=== PATIENT | female | born 1965 | race Caucasian/White ===

== ENCOUNTER 2016-03-13 11:43 | Emergency (ER) | payer OTHER ==
[~2016-03-13] VITALS: Ht 162.6 cm; Wt 111.0 kg
[~2016-03-13 11:43] MED LIST: COZA50TA PO; GABA400C5 PO; GLIP10TA6 PO; GLUC1000 PO; HYDR-3535 PO; ZOFR8TAB PO
[2016-03-13 11:45] VITALS: BP 166/77; PULSE 80; RESP 12; TEMP 97.6; O2SAT 98
[2016-03-13] MEDS ORDERED: [UNRECOGNIZED DRUG - OTHER] (12:38)
[2016-03-13] MEDS ORDERED: MOBI15TA PO (12:38)
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
[2016-03-13] MEDS ORDERED: SODIUM CHLOR 0.9% 1000 ML INJ 1,000 ML IV ONE (13:08)
[2016-03-13] MEDS ORDERED: KETOROLAC TROMETHAMINE 30 MG/ML (IVP) VIAL IVP ONE (13:15)
[2016-03-13] MEDS ORDERED: diphenhydrAMINE HCL 50 MG/ML VIAL IVP ONE (13:15)
[2016-03-13] MEDS ORDERED: PROCHLORPERAZINE INJ 10 MG/2 ML VIAL IVP ONE (13:15)
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
[2016-03-13] MEDS ORDERED: CYCL1TAB29 PO (14:43)
[2016-03-13] MEDS ORDERED: IBUP-232 PO (14:43)
== END 2016-03-13 15:28 | disposition home or self-care (01) ==
LOC: NETRI 11:43
DX: G44.309 Post-traumatic headache, unspecified, not intractable (principal); M54.5 Low back pain; G89.29 Other chronic pain; E78.00 Pure hypercholesterolemia, unspecified; E11.9 Type 2 diabetes mellitus without complications; I10 Essential (primary) hypertension; V53.6XXA Passenger in pick-up truck or van injured in collision with car, pick-up truck or van in traffic accident, initial encounter; Y93.89 Activity, other specified; Y92.410 Unspecified street and highway as the place of occurrence of the external cause
CPT/HCPCS: 70450; 72125; 72131; 73521; 96361; 96374; 96375; 99284; J0780; J1200; J1885; J7030

== ENCOUNTER 2017-09-17 19:23 | Observation (INO) ==
[2017-09-17] MEDS ORDERED: Aspirin 325 MG Tablet PO ONE (19:47)
--- NOTE | 2017-09-17 19:50 | ED ---
HPI General Chief Complaint: Chest Pain Stated Complaint: high blood sugar [id number] Time Seen by Provider: 09/17/17 19:47 Source: patient Mode of arrival: ambulatory Limitations: no limitations History of Present Illness HPI narrative: 51-year-old female patient with history of hypertension, diabetes , has recently been having qgm-jn-epxeegu blood sugars for the last 3 weeks, had her sugar medications readjusted a week ago by her primary care physician, but states it is not getting better, states that she is having frequent urination, not feeling well, having 2 weeks of substernal chest discomfort, shortness of breath and dyspnea on exertion. She has been nauseous. She denies any fevers, vomiting, abdominal pain, or other symptoms. She states that her blood pressure has been out of control as well. She talked to her primary care doctor and was told to come to the ER for evaluation of her blood sugars. Complete Quality Measures for STEMI Alert Patients Related Data Allergies Allergy/AdvReac Type Severity Reaction Status Date / Time codeine AdvReac Intermediate VOMITING Verified 09/17/17 20:01 Review of Systems Except as stated in HPI: all other systems reviewed are negative PMFSH History History Provided By: Patient Medical History Medical History Arthritis pain of hip (Acute) Diabetes (Acute) HTN (hypertension) (Acute) Hip pain (Acute) Hip pain, bilateral (Acute) Peripheral neuropathy (Acute) Restless leg syndrome (Acute) Surgical History Surgical History H/O tubal ligation (Acute) Social History Social History Recent Travel in [facility] within the Last 8 Weeks: No Recent Out of Country Travel within the Last 8 Weeks: No Exam Narrative Exam Narrative: GENERAL: Well-developed middle-age female patient currently and mild distress. Awake and oriented 3. SKIN: Focused skin assessment warm/dry. HEAD: Atraumatic. Normocephalic. EYES: Pupils equal and round. No scleral icterus. No injection or drainage. ENT: No nasal bleeding or discharge. Mucous membranes pink and moist. NECK: Trachea midline. No JVD. CARDIOVASCULAR: Regular rate and rhythm. No murmur appreciated. RESPIRATORY: No accessory muscle use. Clear to auscultation. Breath sounds equal bilaterally. GASTROINTESTINAL: Abdomen soft, non-tender, nondistended. Hepatic and splenic margins not palpable. MUSCULOSKELETAL: No obvious deformities. No clubbing. No cyanosis. No edema. NEUROLOGICAL: Awake and alert. No obvious cranial nerve deficits. Motor grossly within normal limits. Normal speech. PSYCHIATRIC: Appropriate mood and affect; insight and judgment normal. Course Hospital Course: Considering her chest pain, she was given aspirin, nitroglycerin, metoprolol in the ER as well as morphine and had good blood pressure response. Her chest pains went down to a 6 out of 10 after medications were given. And at this point, considering her multiple issues, plan would be to admit her for further treatment. Case is discussed with Dr. Correa for admission. Initial Documented Vital Signs Temperature 98.7 F 09/17/17 19:29 Pulse Rate 83 09/17/17 19:29 Respiratory Rate 16 09/17/17 19:29 Blood Pressure 186/94 H 09/17/17 19:29 Pulse Oximetry 98 09/17/17 19:29 Last Documented Vital Signs Temperature 98.7 F 09/17/17 19:29 Pulse Rate 73 09/17/17 21:21 Respiratory Rate 16 09/17/17 19:29 Blood Pressure 128/69 09/17/17 21:21 Pulse Oximetry 100 09/17/17 21:21 Medical Decision Making Differential Diagnosis Differential Diagnosis: Hypertensive urgency versus electrolyte abnormalities versus UTI versus sepsis Lab Data Result diagrams: 09/17/17 20:20 09/17/17 20:20 Lab Results 09/17/17 09/17/17 09/17/17 Range/Units 20:05 20:20 20:20 CBC w Diff Auto diff final WBC 8.3 (4.0-11.0) th/mm3 RBC 4.74 (4.00-5.30) mil/mm3 Hgb 13.5 (11.6-15.3) gm/dL Hct 39.9 (35.0-46.0) % MCV 84.0 (80.0-100.0) fL MCH 28.4 (27.0-34.0) pg MCHC 33.8 (32.0-36.0) % RDW 12.6 (11.6-17.2) % Plt Count 197 (150-450) th/mm3 MPV 9.3 (7.0-11.0) fL Neut % (Auto) 68.9 (16.0-70.0) % Lymph % (Auto) 27.0 (9.0-44.0) % Foard % (Auto) 2.5 (0.0-8.0) % Eos % (Auto) 1.0 (0.0-4.0) % Baso % (Auto) 0.6 (0.0-2.0) % Neut # (Auto) 5.8 (1.8-7.7) th/mm3 Lymph # (Auto) 2.2 (1.0-4.8) th/mm3 Foard # (Auto) 0.2 (0.0-0.9) th/mm3 Eos # (Auto) 0.1 (0.0-0.4) th/mm3 Baso # (Auto) 0.0 (0.0-0.2) th/mm3 WBC Differential . Differential Comment . PT 10.6 (9.8-11.6) sec INR 1.0 Ratio APTT 22.5 L (24.3-30.1) sec Sodium (136-145) meq/L Potassium (3.5-5.1) meq/L Chloride (98-107) meq/L Carbon Dioxide (21.0-32.0) meq/L Anion Gap (5-15) meq/L BUN (7-18) mg/dL Creatinine (0.50-1.00) mg/dL Estimated GFR (>89) mL/min POC Glucose (68-110) mg/dl Random Glucose (74-106) mg/dL Calcium (8.5-10.1) mg/dL Total Bilirubin (0.2-1.0) mg/dL AST (15-37) U/L ALT (10-53) U/L Alkaline Phosphatase (45-117) U/L Troponin I (0.02-0.05) ng/mL Total Protein (6.4-8.2) g/dL Albumin (3.4-5.0) g/dL Lipase (73-393) U/L Urine Color Yellow (Yellw/Straw) Urine Clarity Clear (Clear) Urine pH 5.5 (5.0-8.5) Ur Specific [place] Less/equal 1.005 (1.002-1.035) Urine Protein Negative (Neg-Trace) mg/dL Urine Glucose (UA) 1000 or greater H (Negative) mg/dL Urine Ketones Negative (Negative) mg/dL Urine Occult Blood Negative (Negative) Urine Nitrate Negative (Negative) Urine Bilirubin Negative (Negative) Urine Urobilinogen 0.2 (Less than 2) mg/dL Ur Leukocyte Esterase Negative (Negative) Urine RBC 0-3 (0-3) /hpf Urine WBC 6-8 H (0-5) /hpf Urine WBC Clumps Few H (None) Ur Squamous Epith Cells 0-5 (0-5) /hpf Micro UA Comment Culture indicated Urine Culture Comments Culture indicated 09/17/17 09/17/17 Range/Units 20:20 21:56 CBC w Diff WBC (4.0-11.0) th/mm3 RBC (4.00-5.30) mil/mm3 Hgb (11.6-15.3) gm/dL Hct (35.0-46.0) % MCV (80.0-100.0) fL MCH (27.0-34.0) pg MCHC (32.0-36.0) % RDW (11.6-17.2) % Plt Count (150-450) th/mm3 MPV (7.0-11.0) fL Neut % (Auto) (16.0-70.0) % Lymph % (Auto) (9.0-44.0) % Foard % (Auto) (0.0-8.0) % Eos % (Auto) (0.0-4.0) % Baso % (Auto) (0.0-2.0) % Neut # (Auto) (1.8-7.7) th/mm3 Lymph # (Auto) (1.0-4.8) th/mm3 Foard # (Auto) (0.0-0.9) th/mm3 Eos # (Auto) (0.0-0.4) th/mm3 Baso # (Auto) (0.0-0.2) th/mm3 WBC Differential Differential Comment PT (9.8-11.6) sec INR Ratio APTT (24.3-30.1) sec Sodium 132 L (136-145) meq/L Potassium 4.3 (3.5-5.1) meq/L Chloride 98 (98-107) meq/L Carbon Dioxide 25.6 (21.0-32.0) meq/L Anion Gap 8 (5-15) meq/L BUN 16 (7-18) mg/dL Creatinine 0.88 (0.50-1.00) mg/dL Estimated GFR 67 L (>89) mL/min POC Glucose 307 H (68-110) mg/dl Random Glucose 397 H (74-106) mg/dL Calcium 9.2 (8.5-10.1) mg/dL Total Bilirubin 0.3 (0.2-1.0) mg/dL AST 30 (15-37) U/L ALT 33 (10-53) U/L Alkaline Phosphatase 91 (45-117) U/L Troponin I Less than 0.02 L (0.02-0.05) ng/mL Total Protein 8.4 H (6.4-8.2) g/dL Albumin 3.3 L (3.4-5.0) g/dL Lipase 387 (73-393) U/L Urine Color (Yellw/Straw) Urine Clarity (Clear) Urine pH (5.0-8.5) Ur Specific [place] (1.002-1.035) Urine Protein (Neg-Trace) mg/dL Urine Glucose (UA) (Negative) mg/dL Urine Ketones (Negative) mg/dL Urine Occult Blood (Negative) Urine Nitrate (Negative) Urine Bilirubin (Negative) Urine Urobilinogen (Less than 2) mg/dL Ur Leukocyte Esterase (Negative) Urine RBC (0-3) /hpf Urine WBC (0-5) /hpf Urine WBC Clumps (None) Ur Squamous Epith Cells (0-5) /hpf Micro UA Comment Urine Culture Comments Imaging Data Radiologist's impression: Chest X-Ray 09/17/17 19:48 CONCLUSION: No active disease. Discharge Plan Discharge Details Anticipated Discharge Date: 09/17/17 Physicians Team ED Provider: Jody Shannon Primary Care Provider: Shruthi Isabel Discharge Interventions Interventions: Vital Signs Last Done: 09/17/17 21:21 Status ED Status: With Doctor
[2017-09-17 20:10] LABS: Bilirubin,Urine Negative (Negative); Clarity,Urine Clear (Clear); Color,Urine Yellow (Yellw/Straw); Leukocyte Esterase,Urine Negative (Negative); Nitrite,Urine Negative (Negative); PH,Urine 5.5 (5.0-8.5); Specific Gravity,Urine Less/Equal 1.005 (1.002-1.035); Urobilinogen,Urine 0.2 mg/dL (Less than 2)
[2017-09-17 20:16] LABS: RBC,Urine 0-3 /hpf (0-3); Squamous Epithelial Cell,Urine 0-5 /hpf (0-5)
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
[2017-09-17] MEDS: Metoprolol Inj 5 MG/5 ML Vial IV.PUSH SCH ×3 (20:25→22:15)
[2017-09-17 20:29] LABS: Baso % (Auto) 0.6 % (0.0-2.0); Eos # (Auto) 0.1 th/mm3 (0.0-0.4); Hematocrit 39.9 % (35.0-46.0); Hemoglobin 13.5 gm/dL (11.6-15.3); Lymph # (Auto) 2.2 th/mm3 (1.0-4.8); Mean Corpuscular HGB Conc 33.8 % (32.0-36.0); Mean Corpuscular Hemoglobin 28.4 pg (27.0-34.0); Mean Platelet Volume 9.3 fL (7.0-11.0); Mono # (Auto) 0.2 th/mm3 (0.0-0.9); Mono % (Auto) 2.5 % (0.0-8.0); Neut # (Auto) 5.8 th/mm3 (1.8-7.7); Neut % (Auto) 68.9 % (16.0-70.0); Platelet Count 197 th/mm3 (150-450); Red Blood Count 4.74 mil/mm3 (4.00-5.30); Red Cell Distribution Width 12.6 % (11.6-17.2); White Blood Count 8.3 th/mm3 (4.0-11.0)
[2017-09-17 20:37] LABS: Chloride 98 meq/L (98-107); Potassium 4.3 meq/L (3.5-5.1); Sodium 132 meq/L (136-145)
[2017-09-17 20:40] LABS: Calcium 9.2 mg/dL (8.5-10.1)
[2017-09-17 20:41] LABS: Albumin 3.3 g/dL (3.4-5.0); Anion Gap 8 meq/L (5-15); Blood Urea Nitrogen 16 mg/dL (7-18); Carbon Dioxide 25.6 meq/L (21.0-32.0); Glucose,Random 397 mg/dL (74-106); Lipase 387 U/L (73-393)
[2017-09-17 20:42] LABS: Activated Partial Thrombo Time 22.5 sec (24.3-30.1); Prothrombin Time 10.6 sec (9.8-11.6)
[2017-09-17 20:43] LABS: Alanine Aminotransferase 33 U/L (10-53)
[2017-09-17 20:44] LABS: Aspartate Aminotransferase 30 U/L (15-37); Glomerular Filtration Rate 67 mL/min (>89)
[2017-09-17 20:45] LABS: Total Protein 8.4 g/dL (6.4-8.2)
[2017-09-17 20:46] LABS: Alkaline Phosphatase 91 U/L (45-117)
[2017-09-17] MEDS ORDERED: Morphine Inj 4 MG/ML Vial IV.PUSH ONE (21:04)
[2017-09-17] MEDS ORDERED: Temazepam 15 MG Capsule PO PRN (22:26)
[2017-09-17] MEDS ORDERED: Bisacodyl 10 MG Supp RECTAL PRN (22:26)
[2017-09-17] MEDS ORDERED: Dextrose 50% in Water 50 ML Vial IV.PUSH PRN (22:29)
[2017-09-17] MEDS: Insulin Detemir Inj 1,000 UNIT/10 ML Vial SQ SCH (23:22)
[2017-09-17] MEDS: Sod Chloride 0.9% Inj 1,000 ML IV.CONT SCH (23:23)
[2017-09-18 00:32] LABS: Creatine Kinase 46 U/L (26-192)
[2017-09-18 03:49] VITALS: O2SAT 95
[2017-09-18] MEDS: oxyCODONE/Acetaminophen 10/325 Tablet PO PRN ×3 (03:53→15:36)
[2017-09-18 05:58] LABS: Baso # (Auto) 0.1 th/mm3 (0.0-0.2); Baso % (Auto) 0.8 % (0.0-2.0); Eos # (Auto) 0.1 th/mm3 (0.0-0.4); Eos % (Auto) 1.6 % (0.0-4.0); Hematocrit 34.7 % (35.0-46.0); Hemoglobin 11.5 gm/dL (11.6-15.3); Lymph # (Auto) 2.9 th/mm3 (1.0-4.8); Lymph % (Auto) 35.6 % (9.0-44.0); Mean Corpuscular HGB Conc 33.2 % (32.0-36.0); Mean Corpuscular Volume 84.4 fL (80.0-100.0); Mean Platelet Volume 9.4 fL (7.0-11.0); Mono # (Auto) 0.4 th/mm3 (0.0-0.9); Mono % (Auto) 5.4 % (0.0-8.0); Neut # (Auto) 4.7 th/mm3 (1.8-7.7); Neut % (Auto) 56.6 % (16.0-70.0); Platelet Count 183 th/mm3 (150-450); Red Blood Count 4.11 mil/mm3 (4.00-5.30); Red Cell Distribution Width 12.7 % (11.6-17.2); White Blood Count 8.2 th/mm3 (4.0-11.0)
[2017-09-18 06:20] LABS: Creatine Kinase 37 U/L (26-192)
[2017-09-18 08:12] LABS: Chloride 103 meq/L (98-107); Potassium 3.8 meq/L (3.5-5.1); Sodium 138 meq/L (136-145)
[2017-09-18 08:17] LABS: Anion Gap 9 meq/L (5-15); Calcium 8.5 mg/dL (8.5-10.1); Carbon Dioxide 26.2 meq/L (21.0-32.0)
--- NOTE | 2017-09-18 08:19 | P.HP ---
History of Present Illness Primary Care Physician: Shruthi Isabel DO Chief Complaint: Uncontrolled diabetes, chest pain, uncontrolled hypertension History of Present Illness: 51-year-old female with known history of diabetes, hypertension, chronic pain, peripheral neuropathy who presented to the hospital because of uncontrolled diabetes. Patient indicates that she was in her normal state of health at home being managed by her primary medical doctor for hypertension, diabetes. When she checked her blood sugar was over 500. She gave herself extra insulin and she did not feel very well so she was brought to the hospital by one of her friends. On presentation patient had a 397 blood glucose level. Patient was given insulin 5 units IV with improvement of her glucose. Patient indicates that her prior medical doctor has been trying to manage her hypertension and diabetes, however she does not feel as if her conditions are in control. Her blood pressure on presentation is 186/94. She states that that is very high for her. The emergency department did administer her Lopressor 5 mg IV 1 with significant improvement in her blood pressure actually dropped down to 103/59. Patient has not required any other as needed blood pressure medication since then. Patient also mentioned to the ER physician that she has been having chest pain. She indicates that her chest pain has been going on for over 2 weeks. She states that it is a constant discomfort in the middle part of her chest. States that it feels like somebody is sitting on her chest. She rates it 8/10 on a pain scale. It is worse whenever she takes a deep breath. She denies any lightheadedness, dizziness, diaphoresis, nausea, vomiting associated with the discomfort. Patient does have significant risk factors for underlying coronary disease. She states that she has had cardiac workup many years ago, does not know exactly what testing was done. Is recommended by the ER physician the patient be observed in the hospital for further evaluation and management. - Diagnosis (1) Hypertension, uncontrolled (2) Uncontrolled diabetes mellitus (3) Chest pain Review of Systems All other systems reviewed negative except as stated in HPI Constitutional: Reports fatigue Cardiovascular: Reports chest pain, Reports lightheadedness, Reports shortness of breath Musculoskeletal: Reports body aches PMFSH - History History Provided By: Patient - Medical History Medical History: Medical History (Last Reviewed 09/18/17 @ 08:00 by DIANA Russell) Arthritis pain of hip Diabetes HTN (hypertension) Hip pain Hip pain, bilateral Peripheral neuropathy Restless leg syndrome - Surgical History Surgical History: Surgical History (Last Updated 09/18/17 @ 08:00 by DIANA Russell) H/O tubal ligation History of hip surgery - Family History Family History: Family History (Last Updated 09/18/17 @ 08:00 by DIANA Russell) Father History of diabetes mellitus - Tobacco History Second Hand Smoke Exposure: No Tobacco Use In Past 30 Days: No Smoking Status: Never smoker Tobacco Type: Cigarettes Number of Pack Years (if former smoker): 5 - Alcohol History How Often Do You Have a Drink Containing Alcohol: Never - Substance Use History Substance History: No History of Abuse - Travel History Recent Travel in the [place] Within the Last 8 Weeks: No Recent Travel Out of the Country Within the Last 8 Weeks: No - Immunization History Tetanus Immunization: Unable to Assess Hx Influenza Vaccine This Season: No Medications and Allergies Active Medications: Active Medications Al Hydroxide/Mg Hydroxide (Milk Of Magnesia Liq) 30 ml PO Q12H PRN PRN Reason: Mild Constipation Bisacodyl (Dulcolax Supp) 10 mg RECTAL DAILY PRN PRN Reason: SEVERE CONSITIPATION Dextrose (D50w Vial) 50 ml IV.PUSH UNSCH PRN PRN Reason: PER HYPOGLYCEMIA PROTOCOL Glucagon (Glucagon Inj) 1 mg OTHER PRN PRN PRN Reason: for Hypoglycemia Protocol Sodium Chloride (Ns Inj) 1,000 mls @ 100 mls/hr IV.CONT .Q10H [facility] Last Admin: 09/17/17 23:23 Dose: 100 mls/hr Insulin Aspart (Novolog Insulin Correctional Sugar Inj) 0 unit SQ ACHS BRENDA; Protocol Insulin Detemir (Levemir Inj) 5 unit SQ BID BRENDA Last Admin: 09/17/17 23:22 Dose: 5 unit Lactulose (Lactulose Liq) 30 ml PO DAILY PRN PRN Reason: SEVERE CONSITIPATION Losartan Potassium (Cozaar) 100 mg PO DAILY [facility] Oxycodone/Acetaminophen (Percocet 10/325 Mg) 1 tab PO Q6H PRN PRN Reason: Acute Pain Last Admin: 09/18/17 03:53 Dose: 1 tab Ropinirole HCl (Requip) 0.5 mg PO HS [facility] Sennosides (Senokot) 17.2 mg PO Q12H PRN PRN Reason: Moderate Constipation Sodium Chloride (Ns Flush) 2 ml IV.FLUSH UNSCH PRN PRN Reason: FLUSH AFTER USING IV ACCESS Temazepam (Restoril) 15 mg PO HS PRN PRN Reason: INSOMNIA Last Admin: 09/17/17 23:14 Dose: 15 mg Allergies Allergy/AdvReac Type Severity Reaction Status Date / Time codeine AdvReac Intermediate VOMITING Verified 09/17/17 20:01 Home Medications Medication Instructions Recorded Confirmed Type gabapentin 600 mg PO TID PRN 09/17/17 09/17/17 History glimepiride 8 mg PO QAM 09/17/17 09/17/17 History losartan 100 mg PO DAILY 09/17/17 09/17/17 History meloxicam 15 mg PO DAILY 09/17/17 09/17/17 History metformin 1,000 mg PO TID 09/17/17 09/17/17 History oxycodone-acetaminophen 1 tab PO Q6H PRN MDD 30 mg 09/17/17 09/17/17 History ropinirole 0.5 mg PO HS 09/17/17 09/17/17 History Exam Vital signs: Vital Signs 09/17/17 19:29 09/17/17 19:48 09/17/17 20:00 Temperature 98.7 F Pulse Rate 83 78 98 H Respiratory Rate 16 Blood Pressure 186/94 H 185/102 H Pulse Oximetry 98 98 99 09/17/17 20:30 09/17/17 21:00 09/17/17 21:21 Temperature Pulse Rate 74 86 73 Respiratory Rate 20 Blood Pressure 122/79 119/60 128/69 Pulse Oximetry 100 09/17/17 22:40 09/18/17 00:00 09/18/17 00:12 Temperature 98 F Pulse Rate 70 54 L 73 Respiratory Rate 18 16 20 Blood Pressure 117/69 103/59 L 117/68 Pulse Oximetry 99 09/18/17 00:22 09/18/17 00:44 09/18/17 03:47 Temperature 98 F 97.3 F L Pulse Rate 54 L 54 L 85 Respiratory Rate 18 16 Blood Pressure 103/59 L 141/78 H Pulse Oximetry 99 95 Intake & Output 09/17/17 09/18/17 09/18/17 18:59 06:59 18:59 Intake Total 120 / 120 Output Total 200 / 200 Balance -80 / -80 Weight 112 kg Intake: Oral 120 / 120 Output: Urine 200 / 200 Other: Weight On Admission 111.2 kg Narrative: GENERAL: Well-developed, well-nourished, in no acute distress. alert and orientated HEENT: Head is normocephalic without any lesions or masses noted. Facial features are symmetric. Eyes: Pupils equal round reactive to light. Extraocular muscles are intact. Conjunctivae were clear. Oropharyngeal: Pharynx without any erythema edema. Tongue is midline without deviation. Buccal mucosa is moist without any masses or lesions NECK: Supple without any masses. Trachea midline no deviation. No JVD, no bruits are appreciated CARDIAC: Regular rhythm, regular rate. S1/S2 are heard. No murmurs gallops or rubs. Reproducible chest wall tenderness noted in the mid sternum LUNGS: Clear to auscultation bilaterally. No wheeze, rhonchi or rales. No use of accessory muscles on inspiration or expiration. ABDOMEN: Soft, nontender. Nondistended. Bowel sounds heard in all 4 quadrants. No organomegaly or masses. Negative rebound, negative guarding EXTREMITIES: No edema, pulses are equal bilaterally. No cyanosis or clubbing NEUROLOGY: Mood and affect appear appropriate. Cranial nerves II through XII grossly intact. Muscle strength 5/5 in upper and lower extremities bilaterally. Deep tendon reflexes are 2+ in upper and lower extremities bilaterally. Results - Labs CBC & Chem 7: 09/18/17 05:00 09/18/17 05:00 Labs: Laboratory Results - last 24 hr 09/17/17 09/17/17 09/17/17 20:05 20:20 20:20 CBC w Diff Auto diff final WBC 8.3 RBC 4.74 Hgb 13.5 Hct 39.9 MCV 84.0 MCH 28.4 MCHC 33.8 RDW 12.6 Plt Count 197 MPV 9.3 Neut % (Auto) 68.9 Lymph % (Auto) 27.0 Larue % (Auto) 2.5 Eos % (Auto) 1.0 Baso % (Auto) 0.6 Neut # (Auto) 5.8 Lymph # (Auto) 2.2 Larue # (Auto) 0.2 Eos # (Auto) 0.1 Baso # (Auto) 0.0 WBC Differential . Differential Comment . PT 10.6 INR 1.0 APTT 22.5 L Sodium Potassium Chloride Carbon Dioxide Anion Gap BUN Creatinine Estimated GFR POC Glucose Random Glucose Calcium Total Bilirubin AST ALT Alkaline Phosphatase Total Creatine Kinase Troponin I Total Protein Albumin Lipase Urine Color Yellow Urine Clarity Clear Urine pH 5.5 Ur Specific Odum Less/equal 1.005 Urine Protein Negative Urine Glucose (UA) 1000 or greater H Urine Ketones Negative Urine Occult Blood Negative Urine Nitrate Negative Urine Bilirubin Negative Urine Urobilinogen 0.2 Ur Leukocyte Esterase Negative Urine RBC 0-3 Urine WBC 6-8 H Urine WBC Clumps Few H Ur Squamous Epith Cells 0-5 Micro UA Comment Culture indicated Urine Culture Comments Culture indicated 09/17/17 09/17/17 09/17/17 20:20 21:56 22:40 CBC w Diff WBC RBC Hgb Hct MCV MCH MCHC RDW Plt Count MPV Neut % (Auto) Lymph % (Auto) Larue % (Auto) Eos % (Auto) Baso % (Auto) Neut # (Auto) Lymph # (Auto) Larue # (Auto) Eos # (Auto) Baso # (Auto) WBC Differential Differential Comment PT INR APTT Sodium 132 L Potassium 4.3 Chloride 98 Carbon Dioxide 25.6 Anion Gap 8 BUN 16 Creatinine 0.88 Estimated GFR 67 L POC Glucose 307 H Random Glucose 397 H Calcium 9.2 Total Bilirubin 0.3 AST 30 ALT 33 Alkaline Phosphatase 91 Total Creatine Kinase 46 Troponin I Less than 0.02 L Less than 0.02 L Total Protein 8.4 H Albumin 3.3 L Lipase 387 Urine Color Urine Clarity Urine pH Ur Specific Odum Urine Protein Urine Glucose (UA) Urine Ketones Urine Occult Blood Urine Nitrate Urine Bilirubin Urine Urobilinogen Ur Leukocyte Esterase Urine RBC Urine WBC Urine WBC Clumps Ur Squamous Epith Cells Micro UA Comment Urine Culture Comments 09/18/17 09/18/17 09/18/17 05:00 05:00 07:57 CBC w Diff Auto diff final WBC 8.2 RBC 4.11 Hgb 11.5 L D Hct 34.7 L MCV 84.4 MCH 28.0 MCHC 33.2 RDW 12.7 Plt Count 183 MPV 9.4 Neut % (Auto) 56.6 Lymph % (Auto) 35.6 Larue % (Auto) 5.4 Eos % (Auto) 1.6 Baso % (Auto) 0.8 Neut # (Auto) 4.7 Lymph # (Auto) 2.9 Larue # (Auto) 0.4 Eos # (Auto) 0.1 Baso # (Auto) 0.1 WBC Differential . Differential Comment . PT INR APTT Sodium Potassium Chloride Carbon Dioxide Anion Gap BUN Creatinine Estimated GFR POC Glucose 288 H Random Glucose Calcium Total Bilirubin AST ALT Alkaline Phosphatase Total Creatine Kinase 37 Troponin I Less than 0.02 L Total Protein Albumin Lipase Urine Color Urine Clarity Urine pH Ur Specific Odum Urine Protein Urine Glucose (UA) Urine Ketones Urine Occult Blood Urine Nitrate Urine Bilirubin Urine Urobilinogen Ur Leukocyte Esterase Urine RBC Urine WBC Urine WBC Clumps Ur Squamous Epith Cells Micro UA Comment Urine Culture Comments - Imaging Impressions Chest X-Ray 09/17/17 19:48 CONCLUSION: No active disease. Caprini VTE Risk Assessment Caprini VTE Risk Assessment: No/Low Risk (score <= 1) Caprini Risk Assessment Model: Point Value = 1 Point Value = 2 Point Value = 3 Point Value = 5 Age 41-60 Minor surgery BMI > 25 kg/m2 Swollen legs Varicose veins or History of unexplained or recurrent spontaneous Oral contraceptives or hormone replacement Sepsis (< 1 month) Serious lung disease, including pneumonia (< 1 month) Abnormal pulmonary function Acute myocardial infarction Congestive heart failure (< 1 month) History of inflammatory bowel disease Medical patient at bed rest Age 61-74 Arthroscopic surgery Major open surgery (> 45 min) Laparoscopic surgery (> 45 min) Malignancy Confined to bed (> 72 hours) Immobilizing plaster cast Central venous access Age >= 75 History of VTE Family history of VTE Factor V Leiden Prothrombin [id number] Lupus anticoagulant Anticardiolipin antibodies Elevated serum homocysteine Heparin-induced thrombocytopenia Other congenital or acquired thrombophilia Stroke (< 1 month) Elective arthroplasty Hip, pelvis, or leg fracture Acute spinal cord injury (< 1 month) Prophylaxis Regimen: Total Risk Factor Score Risk Level Prophylaxis Regimen 0-1 Low Early ambulation 2 Moderate Order ONE of the following: *Sequential Compression Device (SCD) *Heparin 5000 units SQ BID 3-4 Higher Order ONE of the following medications: *Heparin 5000 units SQ TID *Enoxaparin/Lovenox 40 mg SQ daily (WT < 150 kg, CrCl > 30 mL/min) *Enoxaparin/Lovenox 30 mg SQ daily (WT < 150 kg, CrCl > 10-29 mL/min) *Enoxaparin/Lovenox 30 mg SQ BID (WT < 150 kg, CrCl > 30 mL/min) AND/OR *Sequential Compression Device (SCD) 5 or more Highest Order ONE of the following medications: *Heparin 5000 units SQ TID (Preferred with Epidurals) *Enoxaparin/Lovenox 40 mg SQ daily (WT < 150 kg, CrCl > 30 mL/min) *Enoxaparin/Lovenox 30 mg SQ daily (WT < 150 kg, CrCl > 10-29 mL/min) *Enoxaparin/Lovenox 30 mg SQ BID (WT < 150 kg, CrCl > 30 mL/min) AND *Sequential Compression Device (SCD) Assessment and Plan - Assessment (1) Hypertension, uncontrolled Code(s): I10 - Essential (primary) hypertension Status: Acute (2) Uncontrolled diabetes mellitus Code(s): E11.65 - Type 2 diabetes mellitus with hyperglycemia Status: Acute (3) Chest pain Code(s): R07.9 - Chest pain, unspecified Status: Acute - Plan Chest pain, atypical -Pain has remained constant for 2 weeks, very atypical presentation, it is reproducible on palpation. -Patient with increased risk factors include age, hypertension, diabetes, history of tobacco use -Patient has been ruled out for acute coronary event with serial cardiac enzymes are negative -Serial EKGs were reviewed by myself which did show sinus rhythm with incomplete right bundle branch block, possible inferior and anteroseptal myocardial infarction. There does appear to be Q waves in lead III, aVF, V1, V2. This was compared to previous EKGs dating back to 2008 which appear to be the same without any changes -Myocardial perfusion study was performed and did not indicate any ischemia. Low risk. -Continue aspirin -Continue nitroglycerin as needed Hypertension, uncontrolled, improved -Accelerated hypertension on presentation, significantly improved after administration of 1 dose of Lopressor 5 mg -Resume patient's home medications losartan 100 mg daily -Patient blood pressure has remained controlled and normal since admission Diabetes, uncontrolled -Patient presented with blood glucose level 397, patient did receive IV insulin the emergency department with improvement -Hemoglobin A1c is pending -Continue on Levemir 5 units twice daily -Accu-Cheks with sliding scale insulin -I counseled the patient extensively that her diabetes is under great control while she is here in the hospital being monitored with Accu-Cheks. I notified her that she needs to check her blood sugars 4 times daily, before each meal and at bedtime. She is to keep a log of when she takes her medications, all of her blood glucose monitoring, whenever she eats. She is to give that to her prior medical doctor so they can adjust her medications appropriately in order to have better control diabetes Chronic pain, restless leg syndrome -Home medications have been continued DVT prevention -Sequential compression devices Discharge Planning: Discharge home in stable condition Activity: Ad christina. Diet: Healthy heart diet Medication per medication reconciliation Follow-up with primary medical doctor in 1 week
[2017-09-18 08:20] VITALS: BP 154/70
[2017-09-18 08:35] LABS: Alanine Aminotransferase 30 U/L (10-53); Alkaline Phosphatase 70 U/L (45-117); Aspartate Aminotransferase 20 U/L (15-37); Blood Urea Nitrogen 17 mg/dL (7-18); Glomerular Filtration Rate 82 mL/min (>89); Glucose,Random 284 mg/dL (74-106)
--- NOTE | 2017-09-18 08:38 | ECG ---
Date Performed: 09/17/2017 Time Performed: 22:37:27 PTAGE: 51 years EKG: Sinus rhythm LOW QRS VOLTAGE IN PRECORDIAL LEADS INCOMPLETE RIGHT BUNDLE BRANCH BLOCK POSSIBLE INFERIOR MYOCARDIA L INFARCTION ANTEROSEPTAL MYOCARDIAL INFARCTION ABNORMAL ECG PREVIOUS TRACING : 09/17/2017 19.48 No significant change from previous tracing noted. DOCTOR: Luis Mcclelland Interpretating Date/Time 09/18/2017 08:36:28
--- NOTE | 2017-09-18 08:40 | ECG ---
Date Performed: 09/17/2017 Time Performed: 19:48:32 PTAGE: 51 years EKG: Sinus rhythm LOW QRS VOLTAGE IN PRECORDIAL LEADS INCOMPLETE RIGHT BUNDLE BRANCH BLOCK ANTEROSEPTAL MYOCARDIAL INF ARCTION ABNORMAL ECG PREVIOUS TRACING : 01/21/2015 20.09 No significant change from previous tracing noted. DOCTOR: Luis Mcclelland Interpretating Date/Time 09/18/2017 08:39:50
[2017-09-18] MEDS: Insulin NovoLOG Aspart Correctional Sugar Inj SQ SCH ×3 (09:03→13:29)
[2017-09-18] MEDS: Insulin Detemir Inj 1,000 UNIT/10 ML Vial SQ SCH (09:13)
[2017-09-18] MEDS: Sod Chloride 0.9% Inj 1,000 ML IV.CONT SCH (13:20)
[2017-09-18] MEDS ORDERED: Regadenoson Inj 0.4 MG/5 ML Syringe IV.PUSH ONE (13:47)
--- NOTE | 2017-09-18 14:46 | NM ---
EXAM DATE: 09/18/2017 2:40 PM EDT AGE/SEX: 51 years / Female INDICATIONS:Angina. Right bundle branch block Mid chest pain for two weeks. CLINICAL DATA: This is the patient's initial encounter. Patient reports that signs and symptoms have been present for 2 weeks and indicates a pain score of 8/10. MEDICAL/SURGICAL HISTORY: Diabetes mellitus type II. Hypertension. Tubal ligation. COMPARISON: No prior exams available for comparison. No external comparison. DOSE: 10.8 mCi Tc 99m Myoview at rest 30.2 mCi [id number] at stress 0.4 mg Lexiscan STRESS SYMPTOMS: Shortness of breath with a headache. EJECTION FRACTION: 63 % TECHNIQUE: The patient underwent pharmacologic stress with infusion of prescribed dose. Continuous ECG tracing was monitored during stress. Gated SPECT imaging was performed after stress and conventi onal SPECT imaging was performed at rest. The examination was performed on a SPECT/CT scanner, both attenuation and non-corrected datasets were reviewed. FINDINGS: Distribution: The maximum perfused segment at stress is in the septal wall. Perfusion Study: There is a mild severity lateral apical perfusion abnormality without definite red istribution. Gated Study: There are intact wall motion and wall thickening without hypokinetic or dyskinetic segm ents. The ejection fraction is calculated at 63%. RISK CATEGORY: Low (<1% Annual Motality Rate) CONCLUSION: 1. No reversible ischemia 2. Is satisfactory LV function Electronically signed by: Reece Vitale MD 09/18/2017 2:45 PM EDT
[2017-09-22 18:03] VITALS: PULSE 63; TEMP 98.3
[2017-09-22 18:07] VITALS: RESP 4
== END 2017-09-18 16:30 | disposition home or self-care (01) ==
LOC: PHICU 19:23 → PHED 19:23 → INTOOBSV 22:24 → PHEDA 22:24 → PHICU 23:55
PROVIDERS: ADMIT Family Medicine; ATTEND Family Medicine